=== PATIENT | female | born 1965 | race African-American/Black ===

== ENCOUNTER → 2020-05-06 | Outpatient (CLI) | payer OTHER ==
--- NOTE | 2020-05-06 14:39 | KCIC ---
Chest radiograph 05/06/2020 12:00 AM INDICATION: Psoriasis COMPARISON: None available TECHNIQUE: Frontal and lateral views of the chest are provided. FINDINGS: The cardiomediastinal silhouette is within normal limits. There are no pleural effusions. There is no pulmonary vascular congestion. There is no pneumothorax. The lungs are clear. No significant osseous abnormality is identified. IMPRESSION: No acute cardiopulmonary process. Electronically signed by: Nayeli Todd MD (05/06/2020 2:36 PM) [facility]
== END | disposition home or self-care (01) ==
LOC: KCIC 13:18
PROVIDERS: ATTEND Physician Assistant
DX: L40.8 Other psoriasis (principal)
CPT/HCPCS: 71046

== ENCOUNTER → 2021-12-11 | Outpatient (CLI) | payer OTHER ==
--- NOTE | 2021-12-11 14:23 | KCIC ---
CT for coronary artery calcium scoring, without IV contrast, 12/11/2021 2:18 PM INDICATION: Reason: Hyperlipidemia, hypertension, family hx. heart disease. / Spl. Instructions: / H istory: Past smoker of22 yrs., quit 2013. Technique: Noncontrast CT images through the coronary arteries was performed . Findings: No acute noncardiac findings are identified. There is a hiatal hernia. Visual inspection of the coronary arteries: There is a small focus of calcification in the left main coronary artery.The remaining coronary arteries are without discernible calcified plaque. The computer-generated calcium scoring utilizing AJ-130 criteria are as follows: Left Main Artery: 7.0. Left Anterior Descending Artery: 0. Left Circumflex Artery: 0. Right Coronary Artery: 0. The total calcium score is 7 Impression: Your total calcium score is 7. A small amount of plaque is present. The chance of significant heart disease is less than 10%, and corresponds to a low risk for a myocardial infarction. Table: 0: No plaque is present. The chance of significant heart disease is less than 5%, and corresponds to a very low risk for a myocardial infarction. 1-10: A small amount of plaque is present. The chance of significant heart disease is less than 10%, and corresponds to a low risk for a myocardial infarction. 11-100: Plaque is present. This correlates with mild heart disease and a moderate risk for a myocardi al infarction. 101-400: A moderate amount of plaque is present. This correlates with heart disease, and a moderate t o high risk for a myocardial infarction. Over 400: A large amount of plaque is present. This correlates with a greater than 90% chance of a h igh grade stenosis. The risk for myocardial infarction is high. Electronically signed by: Jules Antonio MD (12/11/2021 2:21 PM) [id number]
== END ==
LOC: KCIC CT 13:31
PROVIDERS: ATTEND Family Medicine
DX: E78.5 Hyperlipidemia, unspecified (principal); I10 Essential (primary) hypertension; Z82.49 Family history of ischemic heart disease and other diseases of the circulatory system
CPT/HCPCS: 75571